=== PATIENT | male | born 2000 | race Caucasian/White ===

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

== ENCOUNTER 2018-04-09 11:16 | Inpatient (IN) | payer OTHER ==
[~2018-04-09] VITALS: Ht 180.3 cm; Wt 118.8 kg
[2018-04-09 11:25] VITALS: Ht 180.3 cm; Wt 118.8 kg
[2018-04-09 13:09] LABS: microscopic required? NO
[2018-04-09 13:18] LABS: BASOPHIL % 0.3 % (0-2); PLATELET COUNT 315 x10^3mcL (130-400)
[2018-04-09 14:01] LABS: urine erythrocyte NEGATIVE (NEGATIVE)
[2018-04-09 14:15] LABS: CALCIUM 8.8 mg/dL (8.5-10.1); CARBON DIOXIDE 32.2 mmol/L (21-32); CHLORIDE SERUM 105 mmol/L (98-107); CREATININE SERUM 0.9 mg/dL (0.7-1.3); GFR1 > 60 mL/min; GLUCOSE SERUM 80 mg/dL (74-106); POTASSIUM SERUM 4.4 mmol/L (3.5-5.1); SODIUM SERUM 144 mmol/L (136-145)
[2018-04-09 14:16] LABS: CK-MB 1.5 ng/mL (0-3.6)
[2018-04-09 14:26] LABS: ALBUMIN 4.2 g/dL (3.4-5.0); ALKALINE PHOSPHATASE 98 U/L (46-116); ALT/SGPT 40 U/L (16-63); AST/SGOT 28 U/L (15-37); BILIRUBIN TOTAL 0.39 mg/dL (0.20-1.00); TOTAL PROTEIN, SERUM 7.8 g/dL (6.4-8.2)
[2018-04-09 14:27] LABS: C REACTIVE PROTEIN < 0.2 mg/dL (<=0.9)
[2018-04-09 14:44] LABS: ERYTHROCYTE SED RATE 5 mm/hr (0-15)
[2018-04-09 15:45] LABS: AMPHETAMINE QUAL UR NONE DETECTED (NEG <=1000)
[2018-04-09 15:47] LABS: T3 TOTAL 1.04 ng/mL
[2018-04-09 15:57] LABS: FREE T4 0.91 ng/dL (0.76-1.46); FREE THYROXINE INDEX 2.6 ug/dL (1.4-4.5); T4(THYROXINE) 7.6 ug/dL (4.7-13.3)
[2018-04-09 16:08] LABS: CHOLESTEROL/HDL RATIO 4.2; MAGNESIUM 1.8 mg/dL (1.8-2.4); PHOSPHOROUS 3.4 mg/dL (2.5-4.9)
[2018-04-09 20:39] VITALS: BP 117/75
[2018-04-10 06:26] VITALS: BP 104/41
[2018-04-10 06:37] LABS: CALCIUM 9.1 mg/dL (8.5-10.1); CARBON DIOXIDE 29.4 mmol/L (21-32); CHLORIDE SERUM 105 mmol/L (98-107); GFR1 > 60 mL/min; GLUCOSE SERUM 120 mg/dL (74-106); POTASSIUM SERUM 5.2 mmol/L (3.5-5.1); SODIUM SERUM 142 mmol/L (136-145)
[2018-04-10 06:41] LABS: BASOPHIL % 0.2 % (0-2); PLATELET COUNT 318 x10^3mcL (130-400); RED CELL DISTRIBUTION WIDTH 13.1 % (11.5-14.5)
[2018-04-10 09:28] VITALS: BP 109/58
[2018-04-10] MEDS ORDERED: TYLENOL WITH CO1 TA2 PO (10:11)
[2018-04-10 11:21] VITALS: BP 109/58
[2018-04-10 17:23] VITALS: BP 116/53
== END 2018-04-10 18:02 | disposition home or self-care (01) | DRG 225 ==
LOC: ED 11:16 → DU 14:59 → MU 14:59 → DU 20:19 → MU 20:20
PROVIDERS: Family Medicine; Specialist; Surgery
PROC: 0DTJ4ZZ Resection of Appendix, Percutaneous Endoscopic Approach (ICD-10-PCS; principal; 2018-04-09 18:00)
DX: K35.80 Unspecified acute appendicitis (principal); E87.5 Hyperkalemia; E66.9 Obesity, unspecified; Z68.36 Body mass index [BMI] 36.0-36.9, adult
CPT/HCPCS: 83880; 84439; 94150; J0694; J1644; J1885; J2250; J2270; J2765; J3010; J3490; J7030; Q0092